=== PATIENT | male | born 1970 | race Caucasian/White ===

== ENCOUNTER → 2016-12-01 | Day surgery (SDC) | payer OTHER ==
[~2016-12-01] MED LIST: BUPIVACAINE HCL PF 0.75% 30 ML VIAL ONE; LACTATED RINGER'S 1000 ML INJ 1,000 ML ONE; LIDOCAINE 1.5%/EPINEPHrine 1:200,000 PF SOLN 30 ML AMP NERV BLOCK ONE; MIDAZOLAM HCL 5 MG/ML VIAL (1 ML) ONE; ONDANSETRON HCL 4 MG/2 ML VIAL IV PUSH ONE; PROPOFOL 100 MG/10 ML INJ IV ONE; ceFAZolin 2 GM PREMIX 50 ML ONE
--- NOTE | 2016-12-02 11:16 | MP ---
cc: ANDREE ROSADO M.D. DATE OF SURGERY 12/01/2016 PREOPERATIVE DIAGNOSIS Left distal radius comminuted intra-articular fracture. POSTOPERATIVE DIAGNOSIS Left distal radius comminuted intra-articular fracture. PROCEDURE Left distal radius open reduction, internal fixation using [employer] specialty locking plate. ANESTHESIA General SURGEON Andree Rosado MD [facility] SURGEON KATHI Mora ESTIMATED BLOOD LOSS 50 cc DRAINS None SPECIMEN None COMPLICATIONS None known. INDICATION Jaquan Zeng is a 46-year-old male who sustained a displaced intra-articular fracture of the left distal radius. He is indicated for surgical repair. CT scan confirmed the need for surgical intervention. A detailed informed consent was obtained. PROCEDURE The patient was were given a block and then brought into the operating room, placed under general anesthetic. The left upper extremity prepped and draped in the usual sterile fashion. IV antibiotics were given. Time-out was completed. We proceeded to exsanguinate the limb and then inflate the tourniquet. Volar approach of Jimy, the pronator quadratus was large with a good fascia and was able to be repaired at the end. We did subperiosteal dissection to the level of the fracture site. We manipulated the fracture fragments and we had to lift up in one-piece and push the intra-articular piece up into position, evaluated fluoroscopically and then closed the door with the initial piece and then fixated with a K-wire and then placed our an adjustable cortical screw and then placed the ulnar sided screws and then was able to use a clamp to manipulate the radial styloid fracture into the best position and then proceeded with placement of our ulnar styloid fracture fragments, removal of the K-wire and completion with the proximal locking screws as well. Final x-rays AP, lateral, oblique views and a PA view demonstrated the final result. The tourniquet was let down. Hemostasis obtained. Irrigated out with copious amounts irrigation. I repaired the quadratus and then proceeded to close in layers with absorbable suture, nylon on the skin. Xeroform applied. Sterile dressing applied. Sof-Rol applied. Splint applied. The patient was awoken and returned to the recovery room in stable condition. MD RUBEN Barrientos/YOLANDA /2:05 PM /11:10 AM
== END | disposition home or self-care (01) ==
LOC: ESDC 09:25
PROVIDERS: ATTEND Orthopaedic Surgery Sports Medicine
DX: S52.572A Other intraarticular fracture of lower end of left radius, initial encounter for closed fracture (principal)
CPT/HCPCS: 01830; 25608; 64417; 73110; 76000; C1713; J0690; J2250; J2405; J7120